=== PATIENT | female | born 1990 | race Hispanic/Latino ===

== ENCOUNTER 2022-01-12 09:19 | Emergency (ER) | payer MEDICAID, OTHER ==
[2022-01-12 09:54] LABS: Bilirubin Neg (Negative); Blood, Urine 250 (Negative); Clarity Cloudy (Clear); Glucose, Urine (Dipstick) Normal (Negative); Ketone, Urine Negative (Negative); Leukocyte Negative (Negative); Nitrite Negative (Negative); Protein, Urine (Dipstick) 30 mg/dl (Neg-Trace); Specific Gravity, Urine 1.015 (1.005-1.030); Urobilinogen Normal mg/dL (Less than 2)
[2022-01-12 10:03] LABS: #Eosinphils 0.1 10x3/uL (0.0-0.5); #Monocytes 0.4 10x3/uL (0.0-1.1); #Neutrophils 4.7 10x3/uL (1.5-8.4); %Basophils 0.3 % (0.0-2.0); %Neutrophils 66.6 % (40.0-75.0); Mean Corpuscular HGB CONC 35.4 g/dL (32.0-36.0); Mean Corpuscular Volume 90.4 fl (81.6-98.3); Mean Platelet Volume 10.3 fl (7.4-10.4); Platelet Count 261 10x3/uL (150-450); RBC Distribution Width 12.3 % (11.5-14.5); Red Blood Cell (RBC) Count 3.75 10x6/uL (3.90-5.03)
[2022-01-12 10:09] LABS: Bacteria/HPF Rare-Few HPF (None Seen); RBC/HPF 21-50 HPF (0-3); Squamous Epithelial 0-3 HPF (0-3); WBC/HPF 0-3 HPF (0-3)
== END 2022-01-12 10:26 | disposition home or self-care (01) ==
LOC: CSHERS 09:19
DX: O03.9 Complete or unspecified spontaneous abortion without complication (principal); I10 Essential (primary) hypertension
CPT/HCPCS: 36415; 76856; 81003; 81015; 84702; 85025; 86900; 86901

== ENCOUNTER 2022-01-12 19:02 | Emergency (ER) | payer OTHER ==
[2022-01-12] MEDS ORDERED: Ondansetron PF 4 MG/2 ML Vial ONE (20:02)
[2022-01-12 20:10] LABS: Hemoglobin 10.2 g/dL (12.0-15.5); Mean Corpuscular HGB CONC 34.9 g/dL (32.0-36.0); Mean Corpuscular Hemoglobin 31.8 pg (27.0-33.0); Mean Platelet Volume 10.4 fl (7.4-10.4); Platelet Count 291 10x3/uL (150-450); RBC Distribution Width 12.3 % (11.5-14.5); Red Blood Cell (RBC) Count 3.21 10x6/uL (3.90-5.03); White Blood Cell (WBC) Count 7.6 10x3/uL (3.5-10.5)
[2022-01-12 20:11] LABS: #Eosinphils 0.1 10x3/uL (0.0-0.5); #Monocytes 0.4 10x3/uL (0.0-1.1); #Neutrophils 4.8 10x3/uL (1.5-8.4); %Basophils 0.3 % (0.0-2.0); %Eosinophils 1.3 % (0.0-6.0); %Lymphocytes 30.4 % (18.0-47.0); %Neutrophils 62.7 % (40.0-75.0)
[2022-01-12] MEDS ORDERED: Acetaminophen 325 MG TAB ONE (20:46)
[2022-01-12 21:58] LABS: SARS-CoV-2 NAA Rapid Test Not Detected (NotDetected)
== END 2022-01-12 22:40 | disposition home or self-care (01) ==
LOC: CSHERS 19:02
DX: O03.9 Complete or unspecified spontaneous abortion without complication (principal); Z20.822 Contact with and (suspected) exposure to COVID-19; I10 Essential (primary) hypertension
CPT/HCPCS: 36415; 76856; 81003; 81015; 84702; 85025; 86900; 86901; 99284; J2405

== ENCOUNTER 2023-04-03 08:36 | Emergency (ER) | payer OTHER ==
[2023-04-03 09:33] LABS: #Eosinphils 0.3 10x3/uL (0.0-0.5); #Monocytes 0.4 10x3/uL (0.0-1.1); #Neutrophils 5.5 10x3/uL (1.5-8.4); %Basophils 0.5 % (0.0-2.0); %Eosinophils 3.6 % (0.0-6.0); %Lymphocytes 24.9 % (18.0-47.0); %Monocytes 4.8 % (0.0-10.0); Hematocrit 36.3 % (34.9-44.5); Hemoglobin 12.2 g/dL (12.0-15.5); Mean Corpuscular HGB CONC 33.6 g/dL (32.0-36.0); Mean Corpuscular Volume 92.4 fl (81.6-98.3); Mean Platelet Volume 9.9 fl (7.4-10.4); Platelet Count 338 10x3/uL (150-450); RBC Distribution Width 12.1 % (11.5-14.5); Red Blood Cell (RBC) Count 3.93 10x6/uL (3.90-5.03); White Blood Cell (WBC) Count 8.3 10x3/uL (3.5-10.5)
[2023-04-03 10:26] LABS: Anion Gap 13 mmol/L (10-20); BUN (Urea Nitrogen) 14 mg/dL (7.0-18.7); Calc. Creatinine Clearance 0 mL/min (70-130); Calcium 8.7 mg/dL (7.8-10.44); Carbon Dioxide 22 mmol/L (22-29); Chloride 103 mmol/L (98-107); Estimated GFR 98; Glucose 121 mg/dL (70-105); Potassium 4.1 mmol/L (3.5-5.1); Sodium 134 mmol/L (136-145)
[2023-04-03 10:39] LABS: Bilirubin Neg (Negative); Blood, Urine 250 (Negative); Clarity Clear (Clear); Glucose, Urine (Dipstick) Normal (Negative); Ketone, Urine Negative (Negative); Leukocyte 25 (Negative); Nitrite Negative (Negative); Protein, Urine (Dipstick) 15 mg/dl (Neg-Trace); Specific Gravity, Urine 1.015 (1.005-1.030); Urobilinogen Normal mg/dL (Less than 2)
[2023-04-03 10:48] LABS: Bacteria/HPF 1+ HPF (None Seen); CAUTI Indications for Culture Dysuria,urgency,freq; Squamous Epithelial 0-3 HPF (0-3); WBC/HPF 0-3 HPF (0-3)
[2023-04-03 10:49] LABS: Mucous/LPF 1+ LPF (<2+)
[2023-04-03 10:50] LABS: Urine Culture Reflex No No
== END 2023-04-03 12:19 | disposition home or self-care (01) ==
LOC: CSHERS 08:36
DX: O20.9 Hemorrhage in early pregnancy, unspecified (principal); O23.91 Unspecified genitourinary tract infection in pregnancy, first trimester; R82.71 Bacteriuria; O24.111 Pre-existing type 2 diabetes mellitus, in pregnancy, first trimester; O10.911 Unspecified pre-existing hypertension complicating pregnancy, first trimester; Z3A.01 Less than 8 weeks gestation of pregnancy; Z55.6 Problems related to health literacy
CPT/HCPCS: 36415; 76817; 80048; 81001; 84702; 85025; 87086

== ENCOUNTER 2023-04-05 10:53 | Emergency (ER) | payer OTHER ==
[2023-04-05] MEDS ORDERED: Acetaminophen 500 MG TAB ONE (11:55)
[2023-04-05 12:19] LABS: #Eosinphils 0.1 10x3/uL (0.0-0.5); #Monocytes 0.4 10x3/uL (0.0-1.1); #Neutrophils 5.3 10x3/uL (1.5-8.4); %Basophils 0.3 % (0.0-2.0); %Eosinophils 1.2 % (0.0-6.0); %Lymphocytes 20.3 % (18.0-47.0); %Monocytes 5.7 % (0.0-10.0); %Neutrophils 72.2 % (40.0-75.0); Hematocrit 35.1 % (34.9-44.5); Hemoglobin 12.4 g/dL (12.0-15.5); Mean Corpuscular HGB CONC 35.3 g/dL (32.0-36.0); Mean Corpuscular Hemoglobin 32.3 pg (27.0-33.0); Mean Corpuscular Volume 91.4 fl (81.6-98.3); Mean Platelet Volume 10.1 fl (7.4-10.4); Platelet Count 305 10x3/uL (150-450); RBC Distribution Width 12.1 % (11.5-14.5); Red Blood Cell (RBC) Count 3.84 10x6/uL (3.90-5.03); White Blood Cell (WBC) Count 7.3 10x3/uL (3.5-10.5)
== END 2023-04-05 13:20 | disposition home or self-care (01) ==
LOC: CSHERS 10:53
DX: O03.9 Complete or unspecified spontaneous abortion without complication (principal); I10 Essential (primary) hypertension; E11.9 Type 2 diabetes mellitus without complications; Z55.6 Problems related to health literacy
CPT/HCPCS: 36415; 84702; 85025; 99282

== ENCOUNTER 2023-10-08 17:57 | Emergency (ER) | payer OTHER ==
[2023-10-08 19:35] LABS: #Basophils 0.02 10x3/uL (0.0-0.2); #Eosinphils 0.17 10x3/uL (0.0-0.5); #Monocytes 0.47 10x3/uL (0.0-1.1); #Neutrophils 5.43 10x3/uL (1.5-8.4); %Basophils 0.2 % (0.0-2.0); %Eosinophils 2.1 % (0.0-6.0); %Monocytes 5.8 % (0.0-10.0); %Neutrophils 67.5 % (40.0-75.0); Hematocrit 33.6 % (34.9-44.5); Hemoglobin 11.1 g/dL (12.0-15.5); Mean Corpuscular Hemoglobin 30.7 pg (27.0-33.0); Mean Corpuscular Volume 93.1 fL (81.6-98.3); Mean Platelet Volume 10.2 fL (7.4-10.4); Platelet Count 300 10x3/uL (150-450); RBC Distribution Width 12.9 % (11.5-14.5); Red Blood Cell (RBC) Count 3.61 10x6/uL (3.90-5.03); White Blood Cell (WBC) Count 8.1 10x3/uL (3.5-10.5)
[2023-10-08 19:39] LABS: ALT (SGPT) 20 U/L (8-55); AST (SGOT) 14 U/L (5-34); Albumin 3.5 g/dL (3.5-5.0); Alkaline Phosphatase 70 U/L (40-110); Anion Gap 13 mmol/L (10-20); BUN (Urea Nitrogen) 12 mg/dL (7.0-18.7); Bilirubin, Total 0.2 mg/dL (0.2-1.2); Calc. Creatinine Clearance 0 mL/min (70-130); Calcium 9.3 mg/dL (7.8-10.44); Carbon Dioxide 22 mmol/L (22-29); Chloride 108 mmol/L (98-107); Estimated GFR 96; Globulin 3.5 g/dL (2.4-3.5); Glucose 149 mg/dL (70-105); Sodium 139 mmol/L (136-145)
== END 2023-10-08 22:06 | disposition home or self-care (01) ==
LOC: CSHERS 17:57
DX: O20.0 Threatened abortion (principal); O10.911 Unspecified pre-existing hypertension complicating pregnancy, first trimester; O24.111 Pre-existing type 2 diabetes mellitus, in pregnancy, first trimester; Z3A.01 Less than 8 weeks gestation of pregnancy
CPT/HCPCS: 36415; 76801; 80053; 84702; 85025; 86900; 86901

== ENCOUNTER 2024-02-05 08:05 | Day surgery (SDC) | payer OTHER ==
[2024-02-05 08:32] VITALS: BMI 38.9
== END 2024-02-05 09:05 | disposition home or self-care (01) ==
LOC: CSHLD/OP 08:05
PROVIDERS: ATTEND Obstetrics & Gynecology
DX: O36.8120 Decreased fetal movements, second trimester, not applicable or unspecified (principal); Z3A.22 22 weeks gestation of pregnancy
CPT/HCPCS: 99282

== ENCOUNTER 2024-03-29 15:57 | Inpatient (IN) | payer OTHER ==
[2024-03-29 16:31] VITALS: BMI 41.4
[2024-03-29 17:20] LABS: #Basophils Less than 0.03 10x3/uL (0.0-0.2); #Monocytes 0.55 10x3/uL (0.0-1.1); #Neutrophils 5.81 10x3/uL (1.5-8.4); %Basophils 0.2 % (0.0-2.0); %Eosinophils 1.2 % (0.0-6.0); %Lymphocytes 22.3 % (18.0-47.0); %Monocytes 6.6 % (0.0-10.0); %Neutrophils 69.3 % (40.0-75.0); Hemoglobin 10.8 g/dL (12.0-15.5); Mean Corpuscular HGB CONC 33.8 g/dL (32.0-36.0); Mean Corpuscular Hemoglobin 30.9 pg (27.0-33.0); Mean Corpuscular Volume 91.4 fL (81.6-98.3); Mean Platelet Volume 11.9 fL (7.4-10.4); Platelet Count 205 10x3/uL (150-450); RBC Distribution Width 12.3 % (11.5-14.5); White Blood Cell (WBC) Count 8.38 10x3/uL (3.5-10.5)
[2024-03-29 17:46] LABS: ALT (SGPT) 9 U/L (Less than 34); AST (SGOT) 15 U/L (11-34); Alkaline Phosphatase 68 U/L (40-110); Anion Gap 12 mmol/L (10-20); BUN (Urea Nitrogen) 14 mg/dL (7.0-18.7); Bilirubin, Total 0.1 mg/dL (0.3-1.2); Calc. Creatinine Clearance 187 mL/min (70-130); Calcium 9.3 mg/dL (7.8-10.44); Carbon Dioxide 21 mmol/L (22-29); Chloride 107 mmol/L (98-107); Estimated GFR 102; Globulin 4.1 g/dL (2.4-3.5); Glucose 86 mg/dL (70-105); Potassium 4.2 mmol/L (3.5-5.1); Protein, Total 7.1 g/dL (6.0-8.3); Sodium 136 mmol/L (136-145)
[2024-03-29 18:27] LABS: Bilirubin Neg (Negative); Blood, Urine Negative (Negative); Glucose, Urine (Dipstick) Normal (Negative); Ketone, Urine Negative (Negative); Leukocyte Negative (Negative); Nitrite Negative (Negative); Protein, Urine (Dipstick) 100 mg/dl (Neg-Trace); Urobilinogen Normal mg/dL (Less than 2)
[2024-03-29 18:46] LABS: Clarity Clear (Clear)
[2024-03-29 18:47] LABS: Bacteria/HPF Rare-Few HPF (None Seen); RBC/HPF None Seen HPF (0-3); Squamous Epithelial 0-3 HPF (0-3); WBC/HPF None Seen HPF (0-3)
[2024-03-29] MEDS: NIFEdipine XL 30 MG ER.TAB PO SCH (19:27)
[2024-03-29] MEDS ORDERED: Ondansetron PF 4 MG/2 ML Vial IVP PRN (20:18)
[2024-03-29] MEDS ORDERED: Calcium Gluc 4.6 MEQ/10 ML (100 MG/ML) SLOW IVP PRN (20:18)
[2024-03-29] MEDS ORDERED: Lorazepam 2 MG/ML VIAL SLOW IVP PRN (20:18)
[2024-03-29] MEDS ORDERED: Promethazine HCl 25 MG/ML VIAL IM PRN (20:18)
[2024-03-29] MEDS ORDERED: hydrALAZINE 20 MG/ML VIAL SLOW IVP PRN (20:18)
[2024-03-29] MEDS: hydrALAZINE 20 MG/ML VIAL SLOW IVP PRN (20:19)
[2024-03-29] MEDS: Magnesium Sulfate 20 gm/500 ml 20 GM/500 ML BAG IVPB SCH (21:08)
[2024-03-29] MEDS: Carvedilol 12.5 MG TAB PO SCH (21:12)
[2024-03-29] MEDS: Zolpidem Tartrate 5 MG TAB PO PRN (21:13)
[2024-03-29] MEDS: Betamet Acet/Betamet Na Ph 30 MG/5 ML VIAL IM SCH (21:14)
[2024-03-29 21:33] LABS: HBsAg Index 0.18 S/CO (0-0.99); Hep B Surf Ag - L&D Non-Reactive S/CO (NonReactive)
[2024-03-29 21:34] LABS: Syphilis Antibody Nonreactive (Nonreactive); Syphilis Antibody Index 0.07 S/CO (<1.00 Non-Reactive)
[2024-03-29] MEDS: Labetalol HCl 100 MG/20 ML VIAL SLOW IVP PRN (21:57)
[2024-03-30] MEDS: Acetaminophen 500 MG TAB PO SCH ×2 (00:34)
[2024-03-30 05:52] LABS: Magnesium 3.4 mg/dL (1.6-2.6)
[2024-03-30] MEDS: hydrALAZINE 20 MG/ML VIAL SLOW IVP PRN (06:15)
[2024-03-30] MEDS ORDERED: Simethicone Chewable 80 MG TAB PO PRN (08:57)
[2024-03-30] MEDS ORDERED: Ondansetron PF 4 MG/2 ML Vial IVP PRN ×3 (08:57→08:59)
[2024-03-30] MEDS ORDERED: Meperidine HCl/PF 25 MG (1 mL) VIAL SLOW IVP PRN (08:59)
[2024-03-30] MEDS ORDERED: diphenhydrAMINE 50 MG/ML VIAL IVP PRN (08:59)
[2024-03-30] MEDS ORDERED: Naloxone HCl 0.4 mg/ml Vial IV PRN (08:59)
[2024-03-30] MEDS ORDERED: Moisturizing Cream (Eucerin) 113 GM JAR TOP PRN (08:59)
[2024-03-30] MEDS ORDERED: Promethazine HCl 25 MG/ML VIAL IM PRN (08:59)
[2024-03-30] MEDS ORDERED: Naloxone HCl 0.4 mg/ml Vial IVP PRN ×2 (08:59)
[2024-03-30] MEDS ORDERED: fentaNYL 50 mcg/mL 1 mL Vial SLOW IVP PRN (08:59)
[2024-03-30] MEDS ORDERED: Communication Order-Pharmacy FS SCH (09:00)
[2024-03-30] MEDS ORDERED: Carvedilol 12.5 MG TAB PO SCH (09:00)
[2024-03-30] MEDS ORDERED: Oxytocin 30 units/NS 500 ML 500 ML IV SCH (09:00)
[2024-03-30 10:50] LABS: Magnesium 4.2 mg/dL (1.6-2.6)
[2024-03-30] MEDS: NIFEdipine XL 30 MG ER.TAB PO SCH ×2 (10:50→15:43)
[2024-03-30] MEDS: metFORMIN 500 MG TAB PO SCH (10:51)
[2024-03-30] MEDS: Misoprostol 200 MCG TAB PO SCH (10:51)
[2024-03-30] MEDS: Pantoprazole 40 MG DR.TAB PO SCH (10:51)
[2024-03-30] MEDS: Carvedilol 25 MG TAB PO SCH ×2 (10:52→17:10)
[2024-03-30] MEDS: Ketorolac Tromethamine 30 MG (1 mL) VIAL IVP PRN (14:15)
[2024-03-30] MEDS ORDERED: Ketorolac Tromethamine 30 MG (1 mL) VIAL IVP SCH (14:45)
[2024-03-30] MEDS: CEFAZOLIN 2 GM VIAL ONE (15:40)
[2024-03-30] MEDS: Erythromycin Base 0.5% Oint 1 GM TUBE ONE (15:40)
[2024-03-30] MEDS: Ketorolac Tromethamine 30 MG (1 mL) VIAL ONE (15:41)
[2024-03-30] MEDS: Morphine PF 10 MG/10 ML VIAL ONE (15:41)
[2024-03-30] MEDS: Oxytocin 10 UNITS/ML VIAL ONE ×2 (15:41→15:42)
[2024-03-30] MEDS: Ondansetron PF 4 MG/2 ML Vial ONE (15:41)
[2024-03-30] MEDS: ePHEDrine Sulfate 50 MG/10 ML VIAL ONE (15:41)
[2024-03-30] MEDS: Phytonadione Neonatal 1 MG/0.5 ML AMP ONE (15:41)
[2024-03-30] MEDS: Phenylephrine 40 MG/NS 250 ML 250 ML ONE (15:42)
[2024-03-30] MEDS: Promethazine HCl 25 MG/ML VIAL ONE (15:42)
[2024-03-30] MEDS: Insulin Lispro 100 UNIT/ML 10 ML VIAL SC SCH (15:42)
[2024-03-30] MEDS: PHENYLEPHRINE-NS 100 MCG/ML 10 ML SYRINGE ONE (15:42)
[2024-03-30] MEDS: Dexmedetomidine 200 MCG/2 ML VIAL ONE (15:42)
[2024-03-30] MEDS: Prenatal Vitamin 1 TAB PO SCH (15:43)
[2024-03-30 17:51] LABS: Magnesium 4.9 mg/dL (1.6-2.6)
[2024-03-30] MEDS: Insulin Regular, Human 100 UNIT/ML 10 ML VIAL SC SCH (20:06)
[2024-03-30] MEDS ORDERED: HYDROcodone/Acetaminophen 5/325 mg Tablet PO PRN (21:00)
[2024-03-30] MEDS: FLUoxetine HCl 20 MG CAP PO SCH (21:14)
[2024-03-31 02:32] LABS: Critical Call Chemistry NUR.SN9@0230
[2024-03-31 05:31] LABS: Hematocrit 33.6 % (34.9-44.5); Hemoglobin 11.1 g/dL (12.0-15.5)
[2024-03-31] MEDS: Boostrix 0.5 ML (Tdap) VIAL (>/=7 yrs of age) IM ONE (09:49)
[2024-03-31] MEDS: FLUoxetine HCl 20 MG CAP PO SCH (09:50)
[2024-03-31] MEDS: NIFEdipine XL 30 MG ER.TAB PO SCH (09:50)
[2024-03-31] MEDS: HYDROcodone/Acetaminophen 5/325 mg Tablet PO PRN (11:59)
[2024-03-31] MEDS: Ibuprofen 800 MG TAB PO SCH (21:52)
[2024-04-01] MEDS: Docusate 100 MG CAP PO PRN (08:58)
[2024-04-02] MEDS ORDERED: Pantoprazole 40 MG DR.TAB PO PRN (07:57)
[2024-04-02] MEDS: metFORMIN 500 MG TAB PO SCH (08:45)
[2024-04-02] MEDS: Prenatal Vitamin 1 TAB PO SCH (08:46)
[2024-04-02] MEDS: FLUoxetine HCl 10 MG CAP PO SCH (08:47)
[2024-04-02] MEDS: Carvedilol 12.5 MG TAB PO SCH (08:50)
[2024-04-02 11:22] VITALS: BP 120/67; TEMP 98.3
== END 2024-04-02 12:55 | disposition home or self-care (01) | DRG 788 ==
LOC: CSHLD/OP 15:57 → CSHLD 20:54 → OBSVTOIN 20:55 → CSHLD 03-30 00:50 → CSHPED 03-31 10:32
PROVIDERS: ADMIT Obstetrics & Gynecology; ATTEND Obstetrics & Gynecology
PROC: 10D00Z1 Extraction of Products of Conception, Low, Open Approach (ICD-10-PCS; principal; 2024-03-30)
DX: O10.92 Unspecified pre-existing hypertension complicating childbirth (principal); O24.424 Gestational diabetes mellitus in childbirth, insulin controlled; O99.214 Obesity complicating childbirth; Z3A.30 30 weeks gestation of pregnancy; Z37.0 Single live birth
CPT/HCPCS: 36415; 36416; 51702; 76815; 80053; 81003; 81015; 82570; 83735; 84156; 85014; 85018; 85025; 86780; 86850; 86900; 86901; 87340; 88307; 99285; J0360; J0702; J1815; J1885; J2274; J2405; J2550; J2590; J3475